=== PATIENT | female | born 1975 | race African-American/Black ===

== ENCOUNTER 2017-06-11 12:35 | Emergency (ER) | payer OTHER ==
[2017-06-11 12:47] VITALS: BP 138/77; PULSE 88; TEMP 98; BMI 52.7
[2017-06-11 14:52] LABS: BASO % 0.9 % (0-2.0); EOS % 1.6 % (0-4.5); HEMATOCRIT 38.6 % (32.4-45.2); HEMOGLOBIN 12.3 GM/dL (10.7-15.3); MCH 25.3 pg (25.7-33.7); MCHC 31.8 g/dl (32.0-36.0); MEAN CELL VOLUME 79.4 fl (80-96); MEAN PLT VOLUME 8.4 fl (7.5-11.1); MONO % 12.4 % (3.8-10.2); NEUT % 55.1 % (42.8-82.8); PLATELET COUNT 398 K/MM3 (134-434); RBC 4.86 M/mm3 (3.60-5.2); RDW 15.9 % (11.6-15.6); WHITE BLOOD COUNT 8.1 K/mm3 (4.0-10.0)
--- NOTE | 2017-06-11 14:52 | EKG ---
Test Reason : Blood Pressure : / mmHG Vent. Rate : 094 BPM Atrial Rate : 094 BPM P-R Int : 136 ms QRS Dur : 082 ms QT Int : 360 ms P-R-T Axes : 059 052 034 degrees QTc Int : 450 ms POOR DATA QUALITY, INTERPRETATION MAY BE ADVERSELY AFFECTED NORMAL SINUS RHYTHM NORMAL ECG WHEN COMPARED WITH ECG OF 18-DEC-2010 13:27, NO SIGNIFICANT CHANGE WAS FOUND Confirmed by DAMION VIDAL, KWASI ([id number]) on 06/11/2017 2:52:09 PM Referred By: Confirmed By:KWASI BRUNO MD
[2017-06-11 15:06] LABS: INR 1.04 (0.82-1.09); PROTHROMBIN TIME (PATIENT) 11.7 SEC (9.98-11.88)
--- NOTE | 2017-06-11 15:17 | PDOC ---
History of Present Illness - General History Source: Patient Exam Limitations: No Limitations - History of Present Illness Initial Comments: 06/11/17 15:25 The patient is a 41 year old female, with a significant past medical history of Morbid obesity, Mild MR, Tendonitis of L leg who presents to the emergency department with chest pain since last night. Patient reports midsternal chest pain, non radiating, burning in nature , 5/10 in severity. Patient reports recurrent chest discomfort for years and has been evaluated by cardiology ( negative stress test). Patient reports chest pain is similar to the episodes in the past however is progressively worse. Patient presents to the ED for worsening pain. Patient denies any palpitations, diaphoresis, or shortness of breath. Patient denies headache or dizziness. Patient denies fever, chills, abdominal pain, nausea, vomit, diarrhea or constipation. Patient denies dysuria, frequency, urgency or hematuria. Patient denies sick contacts or recent travel. Allergies: NKA Past surgical history: None Social history: None PCP: Dr. Fer Muir <Ellie Segal - Last Filed: 06/11/17 15:24> <Elijah Cobb - Last Filed: 06/11/17 16:20> - General Chief Complaint: Chest Pain Stated Complaint: CHEST PAIN Time Seen by Provider: 06/11/17 13:33 Past History <Ellie Segal - Last Filed: 06/11/17 15:24> - Past Medical History COPD: No Other medical history: MORBIDE OBESITY, MILD M.R - Suicide/Smoking/Psychosocial Hx Smoking History: Never smoked Have you smoked in the past 12 months: No Information on smoking cessation initiated: No Hx Alcohol Use: No Drug/Substance Use Hx: No Substance Use Type: None <Elijah Cobb - Last Filed: 06/11/17 16:20> - Past Medical History Allergies/Adverse Reactions: Allergies Allergy/AdvReac Type Severity Reaction Status Date / Time No Known Allergies Allergy Verified 06/11/17 14:18 Review of Systems - Review of Systems Constitutional: No: Chills, Fever Respiratory: Yes: SOB with Exertion (chronic x years). No: Cough Cardiac (ROS): Yes: Chest Pain. No: Edema, Palpitations, Syncope ABD/GI: No: Diarrhea, Vomiting Neurological: No: Headache All Other Systems: Reviewed and Negative <Elijah Cobb - Last Filed: 06/11/17 16:20> *Physical Exam - Vital Signs Last Vital Signs Temp Pulse Resp BP Pulse Ox 98.0 F 88 18 138/77 100 06/11/17 12:44 06/11/17 12:44 06/11/17 12:44 06/11/17 12:44 06/11/17 12:44 - Physical Exam Comments: 06/11/17 15:25 GENERAL: The patient is awake, alert, and fully oriented, in no acute distress. +morbidly obese. HEAD: Normal with no signs of trauma. EYES: Pupils equal, round and reactive to light, extraocular movements intact, sclera anicteric, conjunctiva clear with no pallor. ENT: Ears normal, nares patent, oropharynx clear without exudates. Moist mucous membranes. NECK: Normal range of motion, supple without lymphadenopathy, JVD, or masses. LUNGS: Breath sounds equal, clear to auscultation bilaterally. No wheeze/ crackles. HEART: Regular rate and rhythm, normal S1 and S2 without murmur or rub. ABDOMEN: Soft/nontender/nondistended. BS wnl. No guarding or rebound. No palpable masses. No hepatosplenomegaly. EXTREMITIES: Normal range of motion, no edema. No clubbing or cyanosis. No cords, erythema, or tenderness. NEUROLOGICAL: Cranial nerves II through XII grossly intact. Normal speech, normal gait. PSYCH: Normal mood, normal affect. SKIN: Warm, Dry, normal turgor, no rashes or lesions noted. <Ellie Segal - Last Filed: 06/11/17 15:24> - Vital Signs Last Vital Signs Temp Pulse Resp BP Pulse Ox 98.0 F 88 18 138/77 100 06/11/17 12:44 06/11/17 12:44 06/11/17 12:44 06/11/17 12:44 06/11/17 12:44 <Elijah Cobb - Last Filed: 06/11/17 16:20> Heart Score/ECG Review - History History: Slightly suspicious - Electrocardiogram EKG: Normal - Age Age: </= 45 - Risk Factors Risk Factors Heart Score: Yes Hx Obesity Based on the list above the patient has:: 1-2 risk factors - Troponin Troponin: </= normal limit - Score Heart Score - Total: 1 #1 ECG reviewed & interpreted by me at: 12:41 General ECG Interpretation: Sinus Rhythm, Normal Rate (94), Normal Intervals ( qtc 450), No acute ischemic changes <Elijah Cobb - Last Filed: 06/11/17 16:20> ED Treatment Course - LABORATORY CBC & Chemistry Diagram: 06/11/17 14:33 06/11/17 14:33 - ADDITIONAL ORDERS Additional order review: Laboratory Results 06/11/17 06/11/17 15:02 14:33 PT with INR 11.70 INR 1.04 Urine HCG, Qual Negative 06/11/17 14:33 RBC 4.86 MCV 79.4 L MCHC 31.8 L RDW 15.9 H MPV 8.4 Neutrophils % 55.1 Lymphocytes % 30.0 Monocytes % 12.4 H Eosinophils % 1.6 Basophils % 0.9 <Ellie Segal - Last Filed: 06/11/17 15:24> - LABORATORY CBC & Chemistry Diagram: 06/11/17 14:33 06/11/17 14:33 - ADDITIONAL ORDERS Additional order review: 06/11/17 14:33 RBC 4.86 MCV 79.4 L MCHC 31.8 L RDW 15.9 H MPV 8.4 Neutrophils % 55.1 Lymphocytes % 30.0 Monocytes % 12.4 H Eosinophils % 1.6 Basophils % 0.9 - RADIOLOGY Radiology Studies Ordered: Category Date Time Status CHEST PA & LAT [RAD] Stat Radiology 06/11/17 14:12 Ordered <Elijah Cobb - Last Filed: 06/11/17 16:20> Medical Decision Making - Medical Decision Making 06/11/17 15:11 A portion of this note was documented by scribe services under my direction. I have reviewed the details of the note, within reason, and agree with the documentation with the following case summary and management plan written by me. 41-year-old female with history of morbid obesity and mild MR presents with chest discomfort since last night. Patient has history of recurring chest discomfort for years, has been evaluated in the past with stress tests that were normal. Last night developed similar substernal pain without associated symptoms or radiation, presents for evaluation given persistence. Not associated with meals, no palpitations or shortness of breath, no leg swelling. Does wear a left cam boot for tenosynovitis, no history of fracture. No leg swelling or pain. Vital signs normal. Well-appearing, comfortable speaking full sentences Morbidly obese but exam is otherwise normal without evidence of DVT in the left lower extremity Bedside ultrasound shows no pulmonary evidence of DVT/obstructive pain 41-year-old female with atypical chest discomfort, likely heartburn/reflux, rule out ACS though very low clinical suspicion. Heart score is 1, EKG is normal. Check labs, chest x-ray Trial of antacids Discharge if normal 06/11/17 16:18 Workup is within normal limits, no leukocytosis, normal troponin, normal chest x -ray. Feels better after Zantac and Maalox, tolerating by mouth, agrees with discharge plan. <Elijah Cobb - Last Filed: 06/11/17 16:20> *DC/Admit/Observation/Transfer - Attestations Scribe Attestion: 06/11/17 15:25 Documentation prepared by Ellie Segal, acting as medical cash poster for Elijah Cobb MD <Ellie Segal - Last Filed: 06/11/17 15:24> <Elijah Cobb - Last Filed: 06/11/17 16:20> Diagnosis at time of Disposition: Atypical chest pain - Discharge Dispostion Disposition: HOME Condition at time of disposition: Improved - Referrals Referrals: Glenna Monroe [Primary Care Provider] - - Patient Instructions Printed Discharge Instructions: DI for Atypical Chest Pain, DI for Heartburn Additional Instructions: Activity as tolerated. Stay hydrated. Blood tests, an EKG, and a chest x-ray showed no acute abnormalities. The pain may be due to heartburn, take Pepcid [id number] as needed, avoid spicy or fatty food. Continue your medications as previously prescribed by your physician. You should follow up with Dr. Monroe as soon as possible regarding today's emergency department visit. Return to the emergency department for any new or concerning symptoms, particularly persistent or worsening pain, difficulty breathing, fevers or chills, bloody vomit or stool. - Post Discharge Activity
[2017-06-11] MEDS ORDERED: MAG HYDROX/AL HYDROX/SIMETH 30 ML UNIT-DOSE CUP PO ONE (15:22)
[2017-06-11] MEDS ORDERED: RANITIDINE HCL 150 MG TABLET (FP) PO ONE (15:22)
[2017-06-11] MEDS ORDERED: RANITIDINE HCL 150 MG TABLET (FP) ONE (15:26)
[2017-06-11 15:27] LABS: ALBUMIN 3.7 g/dl (3.4-5.0); ANION GAP 4 (8-16); BILIRUBIN,TOTAL 0.2 mg/dL (0.2-1.0); BLOOD UREA NITROGEN 11 mg/dL (7-18); CALCIUM 8.8 mg/dL (8.5-10.1); CHLORIDE 106 mmol/L (98-107); CO2 30 mmol/L (21-32); CREATININE 0.7 mg/dL (0.55-1.02); GLUCOSE,RANDOM 80 mg/dL (74-106); LIPASE 114 U/L (73-393); MAGNESIUM 2.1 mg/dL (1.8-2.4); POTASSIUM 4.3 mmol/L (3.5-5.1); SGOT/AST 11 U/L (15-37); SGPT/ALT 15 U/L (12-78); SODIUM 140 mmol/L (136-145); TOT PROT 6.9 g/dl (6.4-8.2)
[2017-06-11] MEDS ORDERED: MAG HYDROX/AL HYDROX/SIMETH 30 ML UNIT-DOSE CUP ONE (15:27)
[2017-06-11 15:30] LABS: ALK PHOS 48 U/L (45-117)
== END 2017-06-11 16:55 | disposition home or self-care (01) ==
LOC: JER 12:35
DX: R07.89 Other chest pain (principal); F70 Mild intellectual disabilities; E66.01 Morbid (severe) obesity due to excess calories; Z68.43 Body mass index [BMI] 50.0-59.9, adult
CPT/HCPCS: 36415; 71046-TC; 80053; 82550; 83690; 83735; 84484; 84703; 85025; 85610; 93005; 93010; 99284-25